=== PATIENT | female | born 1990 | race African-American/Black ===

== ENCOUNTER 2017-11-09 10:29 | Emergency (ER) | payer MEDICAID ==
[~2017-11-09] VITALS: Ht 165.1 cm; Wt 113.4 kg
[2017-11-09] MEDS ORDERED: ONDANSETRON ODT 4 MG TAB PO ONE (11:15)
[2017-11-09 11:45] LABS: Basophils # (auto) 0.1 uL; Eosinophils # (auto) 0.1 uL; Monocytes # (auto) 0.5 uL; Monocytes % (auto) 7.7 % (0.0-12.0); White Blood Cell 7.1 10^3/uL (4.4-10.8)
[2017-11-09 11:47] LABS: Basophils % (auto) 1.2 % (0.0-2.0); Eosinophils % (auto) 1.1 % (0.0-7.0); Hematocrit 36.9 % (36.0-46.0); Lymphocytes # (auto) 1.5 uL; Lymphocytes % (auto) 21.3 % (10.0-50.0); Mean Corpuscular Hemoglobin 23.7 pg (28.0-32.0); Mean Corpuscular Hgb Conc. 32.6 g/dL (32.0-36.0); Mean Corpuscular Volume 72.8 fL (80.0-100.0); Neutrophils # (auto) 4.9 uL; Neutrophils % (auto) 68.7 % (37.0-80.0); Nucleated Red Blood Cells % 0.2 %; Platelet Count (auto) 313 10^3/uL (140-450); Red Blood Cells 5.07 10^6/uL (4.0-5.20); Red Cell Distribution Width 15.8 % (11.8-14.3)
[2017-11-09 12:21] LABS: Albumin 3.1 g/dL (3.4-5.0); BUN/Creatinine Ratio 8.1; Bilirubin, Total 0.3 mg/dL (0.2-1.0); Calcium 8.8 mg/dL (8.5-10.1); Total Protein 8.9 g/dL (6.4-8.2)
[2017-11-09 13:29] VITALS: BP 156/61
== END 2017-11-09 13:36 | disposition home or self-care (01) ==
LOC: ER 10:34
DX: O21.0 Mild hyperemesis gravidarum (principal); Z3A.01 Less than 8 weeks gestation of pregnancy
CPT/HCPCS: 36415; 76801; 80053; 82010; 84702; 85025; 99285; Q0162

== ENCOUNTER → 2018-02-01 | Outpatient (CLI) | payer MEDICAID | END | disposition home or self-care (01) | LOC: LAB 08:38 | PROVIDERS: ATTEND Specialist | DX: O99.810 Abnormal glucose complicating pregnancy (principal); Z3A.19 19 weeks gestation of pregnancy | CPT/HCPCS: 82951; 82952 ==

== ENCOUNTER 2018-04-23 12:05 | Observation (INO) | payer MEDICAID ==
[2018-04-23] MEDS ORDERED: GLYB2.5T8 PO (12:51)
[2018-04-23] MEDS ORDERED: PREN-96 PO (12:52)
== END 2018-04-23 13:40 | disposition home or self-care (01) | DRG 566 ==
LOC: LDRP 12:05
PROVIDERS: ADMIT Specialist; ATTEND Specialist
DX: O24.419 Gestational diabetes mellitus in pregnancy, unspecified control (principal); Z3A.00 Weeks of gestation of pregnancy not specified
CPT/HCPCS: 59025; 76818; 81002; 82948; 82962; G0378

== ENCOUNTER 2018-04-26 11:03 | Observation (INO) | payer MEDICAID ==
[~2018-04-26 11:03] MED LIST: GLYB2.5T8 PO; PREN-96 PO
== END 2018-04-26 12:55 | disposition home or self-care (01) | DRG 566 ==
LOC: LDRP 11:03
PROVIDERS: ADMIT Specialist; ATTEND Specialist
DX: O24.419 Gestational diabetes mellitus in pregnancy, unspecified control (principal); Z3A.31 31 weeks gestation of pregnancy
CPT/HCPCS: 59025; 76818; 81002; 82962; G0378

== ENCOUNTER 2018-04-29 10:22 | Observation (INO) | payer MEDICAID | END 2018-04-29 12:35 | disposition home or self-care (01) | DRG 563 | LOC: LDRP 10:22 | PROVIDERS: ADMIT Obstetrics & Gynecology; ATTEND Obstetrics & Gynecology | DX: O60.00 Preterm labor without delivery, unspecified trimester (principal); Z3A.31 31 weeks gestation of pregnancy | CPT/HCPCS: 59025; 76818; 81002; 82962; G0378 ==

== ENCOUNTER 2018-05-03 11:47 | Observation (INO) | payer MEDICAID | END 2018-05-03 13:25 | disposition home or self-care (01) | DRG 566 | LOC: LDRP 11:47 | PROVIDERS: ADMIT Obstetrics & Gynecology; ATTEND Obstetrics & Gynecology | DX: O24.419 Gestational diabetes mellitus in pregnancy, unspecified control (principal); Z3A.32 32 weeks gestation of pregnancy | CPT/HCPCS: 59025; 76818; 81002; 82948; 82962; G0378 ==

== ENCOUNTER → 2018-05-03 | Outpatient (CLI) | payer MEDICAID ==
[2018-05-03 11:15] LABS: Basophils # (auto) 0.1 uL; Eosinophils # (auto) 0.1 uL; Hemoglobin 10.7 g/dL (12.2-16.2); Monocytes # (auto) 0.6 uL; Monocytes % (auto) 7.4 % (0.0-12.0)
[2018-05-03 11:17] LABS: Basophils % (auto) 0.9 % (0.0-2.0); Eosinophils % (auto) 1.1 % (0.0-7.0); Hematocrit 33.6 % (36.0-46.0); Lymphocytes # (auto) 1.8 uL; Lymphocytes % (auto) 24.3 % (10.0-50.0); Mean Corpuscular Hemoglobin 24.6 pg (28.0-32.0); Mean Corpuscular Hgb Conc. 31.9 g/dL (32.0-36.0); Neutrophils % (auto) 66.3 % (37.0-80.0); Platelet Count (auto) 254 10^3/uL (140-450); Red Blood Cells 4.37 10^6/uL (4.0-5.20); Red Cell Distribution Width 15.2 % (11.8-14.3); White Blood Cell 7.6 10^3/uL (4.4-10.8)
== END | disposition home or self-care (01) ==
LOC: LAB 10:44
PROVIDERS: ATTEND Specialist
DX: Z34.83 Encounter for supervision of other normal pregnancy, third trimester (principal); Z3A.32 32 weeks gestation of pregnancy
CPT/HCPCS: 36415; 85025

== ENCOUNTER 2018-05-06 10:56 | Observation (INO) | payer MEDICAID | END 2018-05-06 12:05 | disposition home or self-care (01) | DRG 566 | LOC: LDRP 10:56 | PROVIDERS: ADMIT Specialist; ATTEND Specialist | DX: O24.419 Gestational diabetes mellitus in pregnancy, unspecified control (principal); Z3A.32 32 weeks gestation of pregnancy | CPT/HCPCS: 59025; 76818; 81002; G0378 ==

== ENCOUNTER 2018-05-10 10:37 | Observation (INO) | payer MEDICAID | END 2018-05-10 11:55 | disposition home or self-care (01) | DRG 566 | LOC: LDRP 10:37 | PROVIDERS: ADMIT Obstetrics & Gynecology; ATTEND Obstetrics & Gynecology | DX: O24.419 Gestational diabetes mellitus in pregnancy, unspecified control (principal); Z3A.33 33 weeks gestation of pregnancy | CPT/HCPCS: 59025; 76818; 81002; 82948; 82962; G0378 ==

== ENCOUNTER 2018-05-13 11:20 | Observation (INO) | payer MEDICAID | END 2018-05-13 13:10 | disposition home or self-care (01) | DRG 566 | LOC: LDRP 11:20 | PROVIDERS: ADMIT Obstetrics & Gynecology; ATTEND Obstetrics & Gynecology | DX: O24.419 Gestational diabetes mellitus in pregnancy, unspecified control (principal); Z3A.33 33 weeks gestation of pregnancy | CPT/HCPCS: 59025; 76818; 81002; 82948; G0378 ==

== ENCOUNTER 2018-05-20 10:07 | Observation (INO) | payer MEDICAID | END 2018-05-20 11:00 | disposition home or self-care (01) | DRG 566 | LOC: LDRP 10:07 | PROVIDERS: ADMIT Obstetrics & Gynecology; ATTEND Obstetrics & Gynecology | DX: O24.419 Gestational diabetes mellitus in pregnancy, unspecified control (principal); Z3A.34 34 weeks gestation of pregnancy | CPT/HCPCS: 59025; 76818; 81002; 82948; 82962; G0378 ==

== ENCOUNTER 2018-05-25 10:25 | Observation (INO) | payer MEDICAID ==
[2018-05-25 11:27] LABS: Basophils # (auto) 0 uL; Eosinophils # (auto) 0.1 uL; Hemoglobin 11.9 g/dL (12.2-16.2); Lymphocytes # (auto) 1.6 uL; Mean Corpuscular Hemoglobin 24.8 pg (28.0-32.0); Mean Corpuscular Hgb Conc. 32.5 g/dL (32.0-36.0); Nucleated Red Blood Cells % 0.1 %; Red Blood Cells 4.79 10^6/uL (4.0-5.20)
[2018-05-25 11:29] LABS: Basophils % (auto) 0.6 % (0.0-2.0); Eosinophils % (auto) 0.9 % (0.0-7.0); Hematocrit 36.6 % (36.0-46.0); Lymphocytes % (auto) 20.5 % (10.0-50.0); Mean Corpuscular Volume 76.2 fL (80.0-100.0); Monocytes # (auto) 0.6 uL; Monocytes % (auto) 7.5 % (0.0-12.0); Neutrophils # (auto) 5.5 uL; Neutrophils % (auto) 70.5 % (37.0-80.0); Platelet Count (auto) 241 10^3/uL (140-450); Red Cell Distribution Width 16.1 % (11.8-14.3); White Blood Cell 7.8 10^3/uL (4.4-10.8)
[2018-05-26 06:11] LABS: RPR Non Reactive (Non Reactive)
== END 2018-05-25 12:38 | disposition home or self-care (01) | DRG 566 ==
LOC: LAB 10:25 → LDRP 11:15
PROVIDERS: ADMIT Obstetrics & Gynecology; ATTEND Obstetrics & Gynecology
DX: O24.419 Gestational diabetes mellitus in pregnancy, unspecified control (principal); Z3A.35 35 weeks gestation of pregnancy
CPT/HCPCS: 36415; 59025; 76818; 81002; 82948; 82962; 85025; 86592; 87081; G0378

== ENCOUNTER 2018-05-27 11:55 | Observation (INO) | payer MEDICAID | END 2018-05-27 13:10 | disposition home or self-care (01) | DRG 566 | LOC: LDRP 11:55 | PROVIDERS: ADMIT Specialist; ATTEND Specialist | DX: O24.419 Gestational diabetes mellitus in pregnancy, unspecified control (principal); Z3A.35 35 weeks gestation of pregnancy | CPT/HCPCS: 59025; 81002; 82948; 82962; G0378 ==

== ENCOUNTER 2018-05-31 10:46 | Observation (INO) | payer MEDICAID | END 2018-05-31 12:25 | disposition home or self-care (01) | DRG 566 | LOC: LDRP 10:46 | PROVIDERS: ADMIT Specialist; ATTEND Specialist | DX: O24.419 Gestational diabetes mellitus in pregnancy, unspecified control (principal); Z3A.36 36 weeks gestation of pregnancy | CPT/HCPCS: 59025; 76818; 81002; 82948; G0378 ==

== ENCOUNTER 2018-06-03 10:12 | Observation (INO) | payer MEDICAID | END 2018-06-03 11:25 | disposition home or self-care (01) | DRG 566 | LOC: LDRP 10:12 | PROVIDERS: ADMIT Specialist; ATTEND Specialist | DX: O24.419 Gestational diabetes mellitus in pregnancy, unspecified control (principal); Z3A.36 36 weeks gestation of pregnancy | CPT/HCPCS: 59025; 76818; 81002; 82962; G0378 ==

== ENCOUNTER 2018-06-10 09:59 | Observation (INO) | payer MEDICAID | END 2018-06-10 11:30 | disposition home or self-care (01) | DRG 566 | LOC: LDRP 09:59 | PROVIDERS: ADMIT Obstetrics & Gynecology; ATTEND Obstetrics & Gynecology | DX: O24.419 Gestational diabetes mellitus in pregnancy, unspecified control (principal); Z3A.00 Weeks of gestation of pregnancy not specified | CPT/HCPCS: 59025; 76818; 81002; 82948; 82962; G0378 ==

== ENCOUNTER 2018-06-15 11:38 | Observation (INO) | payer MEDICAID | END 2018-06-15 13:35 | disposition home or self-care (01) | DRG 566 | LOC: LDRP 11:38 | PROVIDERS: ADMIT Obstetrics & Gynecology; ATTEND Obstetrics & Gynecology | DX: O24.419 Gestational diabetes mellitus in pregnancy, unspecified control (principal); Z3A.38 38 weeks gestation of pregnancy | CPT/HCPCS: 59025; 76818; 81002; 82962; G0378 ==

== ENCOUNTER 2018-06-17 09:44 | Observation (INO) | payer MEDICAID | END 2018-06-17 11:00 | disposition home or self-care (01) | DRG 566 | LOC: LDRP 09:44 | PROVIDERS: ADMIT Obstetrics & Gynecology; ATTEND Obstetrics & Gynecology | DX: O24.419 Gestational diabetes mellitus in pregnancy, unspecified control (principal); Z3A.38 38 weeks gestation of pregnancy | CPT/HCPCS: 59025; 76818; 81002; 82948; 82962; G0378 ==

== ENCOUNTER 2021-06-06 11:37 | Emergency (ER) | payer MEDICAID ==
[~2021-06-06] VITALS: Ht 170.2 cm; Wt 127.0 kg
[~2021-06-06 11:37] MED LIST changes: -GLYB2.5T8 PO
[2021-06-06 12:45] VITALS: BP 143/76
[2021-06-06] MEDS ORDERED: IBUP800T27 PO (13:02)
[2021-06-06] MEDS ORDERED: LACT10SO59 PO (13:02)
== END 2021-06-06 13:16 | disposition home or self-care (01) ==
LOC: ER 11:41
DX: K59.00 Constipation, unspecified (principal); Z79.1 Long term (current) use of non-steroidal anti-inflammatories (NSAID); Z79.899 Other long term (current) drug therapy
CPT/HCPCS: 74018

== ENCOUNTER 2021-06-19 09:58 | Emergency (ER) | payer MEDICAID ==
[~2021-06-19] VITALS: Ht 170.2 cm; Wt 127.0 kg
[~2021-06-19 09:58] MED LIST changes: +IBUP800T27 PO; +LACT10SO59 PO
[2021-06-19 10:34] VITALS: BP 145/99
[2021-06-19 12:29] LABS: Urine Bacteria FEW /hpf (None Seen); Urine Blood 3+ /uL (Negative); Urine Mucus FEW (None Seen); Urine Specific Gravity 1.024 (1.001-1.035); Urine WBC 8 /hpf (0 - 5)
[2021-06-19] MEDS ORDERED: BACL10TA PO (12:53)
== END 2021-06-19 12:57 | disposition home or self-care (01) ==
LOC: ER 09:58
DX: S39.012A Strain of muscle, fascia and tendon of lower back, initial encounter (principal); E11.9 Type 2 diabetes mellitus without complications; X58.XXXA Exposure to other specified factors, initial encounter; Y93.89 Activity, other specified; Y92.89 Other specified places as the place of occurrence of the external cause; Y99.8 Other external cause status
CPT/HCPCS: 74176; 81001; 81025

== ENCOUNTER 2021-09-17 15:44 | Emergency (ER) | payer MEDICAID ==
[~2021-09-17] VITALS: Ht 170.2 cm; Wt 90.7 kg
[2021-09-17 15:44] VITALS: BP 153/95
[~2021-09-17 15:44] MED LIST changes: +BACL10TA PO
[2021-09-17] MEDS ORDERED: methylPREDNISolone SOD SUCC 125 MG/2 ML VL IM ONE (16:30)
[2021-09-17] MEDS ORDERED: ALBUAER3 IN (16:40)
== END 2021-09-17 16:58 | disposition home or self-care (01) ==
LOC: ER 15:44
DX: J98.01 Acute bronchospasm (principal); E11.9 Type 2 diabetes mellitus without complications
CPT/HCPCS: 71046; 93005; 96372; 99283; J2930

== ENCOUNTER 2021-09-22 14:01 | Emergency (ER) | payer MEDICAID ==
[~2021-09-22] VITALS: Ht 170.2 cm; Wt 127.0 kg
[~2021-09-22 14:01] MED LIST changes: +ALBUAER3 IN
[2021-09-22 19:17] LABS: Basophils # (auto) 0.1 10 ^3/uL (0-0.2); Basophils % (auto) 0.9 % (0.0-2.0); Eosinophils # (auto) 0.3 10 ^3/uL (0-0.8); Eosinophils % (auto) 2.5 % (0.0-7.0); Hematocrit 35.7 % (36.0-46.0); Hemoglobin 11.5 g/dL (12.2-16.2); Lymphocytes % (auto) 28.3 % (10.0-50.0); Mean Corpuscular Hemoglobin 24.3 pg (28.0-32.0); Mean Corpuscular Hgb Conc. 32.3 g/dL (32.0-36.0); Monocytes # (auto) 0.8 10 ^3/uL (0-1.3); Monocytes % (auto) 7.1 % (0.0-12.0); Neutrophils # (auto) 6.5 10 ^3/uL (1.6-8.6); Neutrophils % (auto) 61.2 % (37.0-80.0); Nucleated Red Blood Cells % 0.1 %; Red Blood Cells 4.75 10^6/uL (4.0-5.20); White Blood Cell 10.6 10^3/uL (4.4-10.8)
[2021-09-22 19:29] LABS: Albumin 3.2 g/dL (3.4-5.0); Calcium 8.8 mg/dL (8.5-10.1); Potassium 3.7 mmol/L (3.5-5.1)
[2021-09-22 19:32] LABS: BUN/Creatinine Ratio 9.8; Bilirubin, Total 0.3 mg/dL (0.2-1.0)
[2021-09-22 21:00] VITALS: BP 131/79
== END 2021-09-22 21:04 | disposition home or self-care (01) ==
LOC: ER 14:01
DX: R07.89 Other chest pain (principal); E11.9 Type 2 diabetes mellitus without complications; Z79.1 Long term (current) use of non-steroidal anti-inflammatories (NSAID); Z79.899 Other long term (current) drug therapy
CPT/HCPCS: 36415; 71046; 80053; 84484; 85025; 93005

== ENCOUNTER 2022-01-23 10:34 | Emergency (ER) | payer MEDICAID ==
[~2022-01-23] VITALS: Ht 170.2 cm; Wt 122.2 kg
[2022-01-23 11:48] LABS: Basophils # (auto) 0 10 ^3/uL (0-0.2); Basophils % (auto) 0.4 % (0.0-2.0); Eosinophils # (auto) 0.2 10 ^3/uL (0-0.8); Hemoglobin 10.9 g/dL (12.2-16.2); Lymphocytes # (auto) 1.7 10 ^3/uL (0.4-5.4); Mean Corpuscular Hemoglobin 23.4 pg (28.0-32.0); Monocytes # (auto) 0.4 10 ^3/uL (0-1.3); Nucleated Red Blood Cells % 0.1 %; Red Blood Cells 4.67 10^6/uL (4.0-5.20)
[2022-01-23 11:51] LABS: Eosinophils % (auto) 3.2 % (0.0-7.0); Hematocrit 34.3 % (36.0-46.0); Lymphocytes % (auto) 29.2 % (10.0-50.0); Mean Corpuscular Hgb Conc. 31.9 g/dL (32.0-36.0); Mean Corpuscular Volume 73.4 fL (80.0-100.0); Monocytes % (auto) 6.5 % (0.0-12.0); Neutrophils # (auto) 3.5 10 ^3/uL (1.6-8.6); Neutrophils % (auto) 60.7 % (37.0-80.0); Red Cell Distribution Width 16.5 % (11.8-14.3); White Blood Cell 5.8 10^3/uL (4.4-10.8)
[2022-01-23 12:09] LABS: Albumin 3.4 g/dL (3.4-5.0); BUN/Creatinine Ratio 6.5; Calcium 8.8 mg/dL (8.5-10.1)
[2022-01-23 12:11] LABS: Bilirubin, Total 0.2 mg/dL (0.2-1.0); Total Protein 8.4 g/dL (6.4-8.2)
[2022-01-23 12:34] VITALS: BP 141/88
[2022-01-23] MEDS ORDERED: PANT40TA2 PO (13:04)
== END 2022-01-23 13:11 | disposition home or self-care (01) ==
LOC: ER 10:43
DX: K21.9 Gastro-esophageal reflux disease without esophagitis (principal); K76.0 Fatty (change of) liver, not elsewhere classified; E11.9 Type 2 diabetes mellitus without complications; Z79.1 Long term (current) use of non-steroidal anti-inflammatories (NSAID); Z79.899 Other long term (current) drug therapy
CPT/HCPCS: 36415; 76705; 80053; 84484; 84702; 85025; 93005

== ENCOUNTER 2022-02-28 16:41 | Emergency (ER) | payer MEDICAID ==
[~2022-02-28] VITALS: Ht 172.7 cm; Wt 129.9 kg
[~2022-02-28 16:41] MED LIST changes: +PANT40TA2 PO
[2022-02-28 20:02] LABS: Basophils # (auto) 0.1 10 ^3/uL (0-0.2); Eosinophils # (auto) 0.2 10 ^3/uL (0-0.8); Hemoglobin 11.1 g/dL (12.2-16.2); Nucleated Red Blood Cells % 0.1 %
[2022-02-28 20:03] LABS: Basophils % (auto) 0.9 % (0.0-2.0); Eosinophils % (auto) 2.9 % (0.0-7.0); Hematocrit 35.2 % (36.0-46.0); Lymphocytes # (auto) 3.2 10 ^3/uL (0.4-5.4); Lymphocytes % (auto) 41.7 % (10.0-50.0); Mean Corpuscular Hemoglobin 22.9 pg (28.0-32.0); Mean Corpuscular Hgb Conc. 31.6 g/dL (32.0-36.0); Mean Corpuscular Volume 72.5 fL (80.0-100.0); Monocytes # (auto) 0.6 10 ^3/uL (0-1.3); Monocytes % (auto) 8.3 % (0.0-12.0); Neutrophils # (auto) 3.6 10 ^3/uL (1.6-8.6); Neutrophils % (auto) 46.2 % (37.0-80.0); Red Blood Cells 4.86 10^6/uL (4.0-5.20); Red Cell Distribution Width 16.5 % (11.8-14.3); White Blood Cell 7.7 10^3/uL (4.4-10.8)
[2022-02-28 20:05] LABS: Urine Bacteria FEW /hpf (None Seen); Urine Blood Negative /uL (Negative); Urine Mucus FEW (None Seen); Urine Specific Gravity 1.039 (1.001-1.035); Urine WBC 5 /hpf (0 - 5)
[2022-02-28 20:14] LABS: Albumin 3.5 g/dL (3.4-5.0); Calcium 8.6 mg/dL (8.5-10.1); Potassium 3.6 mmol/L (3.5-5.1)
[2022-02-28 20:22] LABS: BUN/Creatinine Ratio 8.3; Bilirubin, Total 0.3 mg/dL (0.2-1.0); Total Protein 8.2 g/dL (6.4-8.2)
[2022-02-28 22:23] VITALS: BP 114/72
== END 2022-02-28 22:29 | disposition home or self-care (01) ==
LOC: ER 16:41
DX: R10.9 Unspecified abdominal pain (principal); E11.9 Type 2 diabetes mellitus without complications
CPT/HCPCS: 36415; 80053; 81001; 84702; 85025

== ENCOUNTER 2022-03-11 09:26 | Emergency (ER) | payer MEDICAID ==
[~2022-03-11] VITALS: Ht 172.7 cm; Wt 127.2 kg
[2022-03-11 09:46] VITALS: BP 125/72
[2022-03-11 10:32] LABS: Basophils # (auto) 0.1 10 ^3/uL (0-0.2); Basophils % (auto) 1.3 % (0.0-2.0); Eosinophils # (auto) 0.1 10 ^3/uL (0-0.8); Eosinophils % (auto) 2.2 % (0.0-7.0); Hematocrit 34.6 % (36.0-46.0); Lymphocytes # (auto) 2.2 10 ^3/uL (0.4-5.4); Lymphocytes % (auto) 37.5 % (10.0-50.0); Mean Corpuscular Hemoglobin 23.5 pg (28.0-32.0); Mean Corpuscular Hgb Conc. 31.7 g/dL (32.0-36.0); Mean Corpuscular Volume 73.9 fL (80.0-100.0); Monocytes # (auto) 0.5 10 ^3/uL (0-1.3); Monocytes % (auto) 8.3 % (0.0-12.0); Neutrophils # (auto) 2.9 10 ^3/uL (1.6-8.6); Neutrophils % (auto) 50.7 % (37.0-80.0); Nucleated Red Blood Cells % 0.1 %; Red Blood Cells 4.69 10^6/uL (4.0-5.20); White Blood Cell 5.8 10^3/uL (4.4-10.8)
[2022-03-11 10:54] LABS: Urine Bacteria NONE SEEN /hpf (None Seen); Urine Blood Negative /uL (Negative); Urine Mucus FEW (None Seen); Urine Specific Gravity 1.019 (1.001-1.035); Urine WBC 1 /hpf (0 - 5)
[2022-03-11 11:06] LABS: Alanine Aminotransferase 13 U/L (13-56); Alkaline Phosphatase 69 U/L (45-117); Anion Gap 7 (5-15); Aspartate Aminotransferase 8 U/L (15-37); BUN/Creatinine Ratio 4.8; Bilirubin, Total 0.3 mg/dL (0.2-1.0); Blood Urea Nitrogen 5 mg/dL (7-18); Calcium 8.3 mg/dL (8.5-10.1); Carbon Dioxide 24 mmol/L (21-32); Chloride 109 mmol/L (98-107); GFR African American 78 mL/min; GFR Non-African American 65 mL/min; Glucose 101 mg/dL (74-106); Potassium 3.8 mmol/L (3.5-5.1); Sodium 140 mmol/L (136-145)
[2022-03-11 11:07] LABS: Albumin 3.2 g/dL (3.4-5.0); Total Protein 7.9 g/dL (6.4-8.2)
== END 2022-03-11 13:22 | disposition home or self-care (01) ==
LOC: ER 09:26
DX: R10.30 Lower abdominal pain, unspecified (principal); E11.9 Type 2 diabetes mellitus without complications; Z32.02 Encounter for pregnancy test, result negative
CPT/HCPCS: 36415; 74176; 80053; 81001; 81025; 85025

== ENCOUNTER 2022-04-06 09:37 | Emergency (ER) | payer MEDICAID ==
[~2022-04-06] VITALS: Ht 172.7 cm; Wt 122.7 kg
[2022-04-06 09:37] VITALS: BP 149/94
[2022-04-06 10:56] LABS: Urine Bacteria FEW /hpf (None Seen); Urine Blood TRACE /uL (Negative); Urine Specific Gravity 1.003 (1.001-1.035); Urine WBC 1 /hpf (0 - 5)
[2022-04-06 11:12] LABS: Albumin 3.4 g/dL (3.4-5.0); BUN/Creatinine Ratio 9.4; Bilirubin, Total 0.3 mg/dL (0.2-1.0); Potassium 3.9 mmol/L (3.5-5.1); Total Protein 7.8 g/dL (6.4-8.2)
[2022-04-06 11:47] LABS: Eosinophils # (auto) 0.2 10 ^3/uL (0-0.8); Hemoglobin 11.6 g/dL (12.2-16.2); Monocytes # (auto) 0.4 10 ^3/uL (0-1.3)
[2022-04-06 11:49] LABS: Basophils # (auto) 0.1 10 ^3/uL (0-0.2); Basophils % (auto) 0.8 % (0.0-2.0); Hematocrit 36.2 % (36.0-46.0); Lymphocytes # (auto) 2.1 10 ^3/uL (0.4-5.4); Lymphocytes % (auto) 32.9 % (10.0-50.0); Mean Corpuscular Hemoglobin 23.6 pg (28.0-32.0); Mean Corpuscular Volume 73.7 fL (80.0-100.0); Monocytes % (auto) 6.8 % (0.0-12.0); Neutrophils # (auto) 3.6 10 ^3/uL (1.6-8.6); Neutrophils % (auto) 56.5 % (37.0-80.0); Nucleated Red Blood Cells % 0.1 %; Red Cell Distribution Width 16.9 % (11.8-14.3); White Blood Cell 6.4 10^3/uL (4.4-10.8)
[2022-04-06] MEDS ORDERED: FAMOTIDINE 20 MG TAB PO ONE (12:45)
[2022-04-06] MEDS ORDERED: LIDOCAINE VISCOUS 2% 15ML UD PO ONE (12:45)
[2022-04-06] MEDS ORDERED: ALUM & MAG HYDROX-SIMETH LIQ(MAALOX) 30 ML PO ONE (12:45)
[2022-04-06] MEDS ORDERED: ONDANSETRON ODT 4 MG TAB PO ONE (12:45)
== END 2022-04-06 15:14 | disposition home or self-care (01) ==
LOC: ER 09:37
DX: K21.9 Gastro-esophageal reflux disease without esophagitis (principal); E11.9 Type 2 diabetes mellitus without complications; Z79.899 Other long term (current) drug therapy; Z79.1 Long term (current) use of non-steroidal anti-inflammatories (NSAID)
CPT/HCPCS: 36415; 71045; 80053; 81001; 81025; 84484; 85025; 93005; 99285; Q0162

== ENCOUNTER 2023-03-28 04:41 | Emergency (ER) | payer MEDICAID ==
[~2023-03-28] VITALS: Ht 170.2 cm; Wt 125.0 kg
[~2023-03-28 04:41] MED LIST changes: +IBUP-1456 PO; -IBUP800T27 PO
[2023-03-28 07:24] VITALS: BP 134/82; PULSE 91; RESP 16; TEMP 98.4; O2SAT 97
[2023-03-28 08:21] LABS: Urine Bacteria FEW /hpf (None Seen); Urine Blood Negative /uL (Negative); Urine Clarity Clear (Clear); Urine Color Yellow (Yellow); Urine Protein, UAD TRACE (Negative); Urine Specific Gravity 1.023 (1.001-1.035); Urine Urobilinogen Normal (Negative); Urine WBC 4 /hpf (0 - 5)
[2023-03-28] MEDS ORDERED: FLUC150T38 PO (09:17)
== END 2023-03-28 09:18 | disposition home or self-care (01) ==
LOC: ER 04:41
DX: B37.31 Acute candidiasis of vulva and vagina (principal); N76.0 Acute vaginitis; E11.9 Type 2 diabetes mellitus without complications; K21.9 Gastro-esophageal reflux disease without esophagitis; Z32.02 Encounter for pregnancy test, result negative
CPT/HCPCS: 81001; 81025

== ENCOUNTER 2023-05-18 17:05 | Emergency (ER) | payer MEDICAID ==
[~2023-05-18] VITALS: Ht 170.2 cm; Wt 122.2 kg
[~2023-05-18 17:05] MED LIST changes: +FLUC150T38 PO
[2023-05-18 18:17] VITALS: BP 141/82; PULSE 80; RESP 16; TEMP 98.6
[2023-05-18 19:42] LABS: Urine Bacteria NONE SEEN /hpf (None Seen); Urine Blood Negative /uL (Negative); Urine Clarity Clear (Clear); Urine Color Yellow (Yellow); Urine Protein, UAD Negative (Negative); Urine Urobilinogen Normal (Negative); Urine WBC 1 /hpf (0 - 5); Urine pH 6.5 (5.0-8.0)
[2023-05-18 20:49] VITALS: O2SAT 100
[2023-05-18] MEDS ORDERED: MET500T PO (21:22)
== END 2023-05-18 21:34 | disposition home or self-care (01) ==
LOC: ER 17:05
DX: N76.0 Acute vaginitis (principal); B96.89 Other specified bacterial agents as the cause of diseases classified elsewhere; E11.9 Type 2 diabetes mellitus without complications; K21.9 Gastro-esophageal reflux disease without esophagitis; Z79.899 Other long term (current) drug therapy
CPT/HCPCS: 81001

== ENCOUNTER 2023-06-07 14:06 | Emergency (ER) | payer MEDICAID ==
[~2023-06-07] VITALS: Ht 170.2 cm; Wt 120.8 kg
[~2023-06-07 14:06] MED LIST changes: +MET500T PO
[2023-06-07 15:04] LABS: Urine Bacteria NONE SEEN /hpf (None Seen); Urine Blood Negative /uL (Negative); Urine Clarity Clear (Clear); Urine Color Yellow (Yellow); Urine Mucus FEW (None Seen); Urine Protein, UAD Negative (Negative); Urine Specific Gravity 1.021 (1.001-1.035); Urine Urobilinogen Normal (Negative); Urine WBC 4 /hpf (0 - 5); Urine pH 5.5 (5.0-8.0)
[2023-06-07] MEDS ORDERED: METR1GEL TOP (16:12)
[2023-06-07] MEDS ORDERED: FLUC150T38 PO (16:12)
[2023-06-07] MEDS ORDERED: METR375C PO (16:33)
[2023-06-07 16:46] VITALS: BP 120/80; PULSE 88; RESP 17; TEMP 98.4; O2SAT 97
== END 2023-06-07 16:48 | disposition home or self-care (01) ==
LOC: ER 14:06
DX: B37.31 Acute candidiasis of vulva and vagina (principal); E11.9 Type 2 diabetes mellitus without complications; K21.9 Gastro-esophageal reflux disease without esophagitis; Z79.899 Other long term (current) drug therapy
CPT/HCPCS: 81001

== ENCOUNTER 2023-10-25 08:43 | Emergency (ER) | payer MEDICAID ==
[~2023-10-25] VITALS: Ht 170.2 cm; Wt 107.8 kg
[~2023-10-25 08:43] MED LIST changes: +METR-344 PO; +METR375C PO
[2023-10-25] MEDS: MAALOX PLUS or MAALOX 30 ML PO ONE (09:28)
[2023-10-25] MEDS: DONNATAL 5ml ORAL Elix (BELLADONNA ALK-PHENOBARB) PO ONE (09:28)
[2023-10-25] MEDS: LIDOCAINE VISCOUS 2% 15ML UD PO ONE (09:28)
[2023-10-25 09:51] LABS: Basophils # (auto) 0.1 10 ^3/uL (0-0.2); Eosinophils # (auto) 0.2 10 ^3/uL (0-0.8); Eosinophils % (auto) 4.9 % (0.0-7.0); Hemoglobin 11.4 g/dL (12.2-16.2); Monocytes # (auto) 0.4 10 ^3/uL (0-1.3); Neutrophils # (auto) 2.3 10 ^3/uL (1.6-8.6)
[2023-10-25 09:53] LABS: Basophils % (auto) 1.4 % (0.0-2.0); Hematocrit 35.6 % (36.0-46.0); Lymphocytes % (auto) 39.3 % (10.0-50.0); Mean Corpuscular Hemoglobin 25.2 pg (28.0-32.0); Mean Corpuscular Hgb Conc. 32.1 g/dL (32.0-36.0); Mean Corpuscular Volume 78.4 fL (80.0-100.0); Neutrophils % (auto) 46.4 % (37.0-80.0); Nucleated Red Blood Cells % 0.1 %; Red Blood Cells 4.54 10^6/uL (4.0-5.20); Red Cell Distribution Width 15.4 % (11.8-14.3)
[2023-10-25 10:08] LABS: Chloride 107 mmol/L (98-107); Sodium 139 mmol/L (136-145)
[2023-10-25 10:09] LABS: Anion Gap 4 (5-15); Carbon Dioxide 28 mmol/L (20-30)
[2023-10-25 10:10] LABS: Calcium 9.4 mg/dL (8.5-10.1)
[2023-10-25 10:14] LABS: BUN/Creatinine Ratio 7.6 (10.0-20.0); Blood Urea Nitrogen 8 mg/dL (9-23); Glucose 86 mg/dL (74-106)
[2023-10-25 10:32] LABS: Urine Bacteria FEW /hpf (None Seen); Urine Blood Negative /uL (Negative); Urine Clarity Clear (Clear); Urine Color Light-Yellow (Yellow); Urine Protein, UAD Negative (Negative); Urine Specific Gravity 1.013 (1.001-1.035); Urine Urobilinogen Normal (Negative); Urine WBC 1 /hpf (0 - 5); Urine pH 6.5 (5.0-9.0)
[2023-10-25 10:56] VITALS: BP 124/78; PULSE 87; RESP 18; TEMP 97.9; O2SAT 100
== END 2023-10-25 11:17 | disposition home or self-care (01) ==
LOC: ER 08:43
DX: K29.70 Gastritis, unspecified, without bleeding (principal); E11.9 Type 2 diabetes mellitus without complications; K21.9 Gastro-esophageal reflux disease without esophagitis
CPT/HCPCS: 36415; 80048; 81001; 85025; 85379

== ENCOUNTER 2023-12-21 16:13 | Emergency (ER) | payer MEDICAID ==
[~2023-12-21] VITALS: Ht 170.2 cm; Wt 105.0 kg
[2023-12-21 16:51] VITALS: PULSE 82; PULSE 87; RESP 16; O2SAT 97
[2023-12-21 17:20] LABS: Urine Bacteria None Seen /hpf (None Seen)
[2023-12-21 17:47] LABS: Urine Blood Negative /uL (Negative); Urine Clarity Clear (Clear); Urine Color Light-Yellow (Yellow); Urine Protein, UAD Negative (Negative); Urine Specific Gravity 1.019 (1.001-1.035); Urine Urobilinogen Normal (Negative); Urine WBC 2 /hpf (0 - 5); Urine pH 5.5 (5.0-9.0)
[2023-12-21] MEDS ORDERED: FLUC150T38 PO (18:03)
[2023-12-21] MEDS ORDERED: METR-344 PO (18:03)
[2023-12-21 18:15] VITALS: BP 121/71; PULSE 85; RESP 18; TEMP 98.7; O2SAT 100
[2023-12-22 14:06] LABS: Chlamydia Trachomatis, NAA Negative (Negative); Neisseria gonorrhoeae, NAA Negative (Negative)
== END 2023-12-21 18:19 | disposition home or self-care (01) ==
LOC: ER 16:13
DX: B37.31 Acute candidiasis of vulva and vagina (principal); N76.0 Acute vaginitis; N94.10 Unspecified dyspareunia; E11.9 Type 2 diabetes mellitus without complications; K21.9 Gastro-esophageal reflux disease without esophagitis
CPT/HCPCS: 81001

== ENCOUNTER 2024-01-22 15:42 | Emergency (ER) | payer MEDICAID ==
[~2024-01-22] VITALS: Ht 170.2 cm; Wt 103.0 kg
[2024-01-22 16:30] VITALS: BP 121/77; PULSE 82; RESP 18; TEMP 98.9; O2SAT 99
[2024-01-22] MEDS ORDERED: PROM1SOL4 PO (17:04)
== END 2024-01-22 17:18 | disposition home or self-care (01) ==
LOC: ER 15:42
DX: J20.9 Acute bronchitis, unspecified (principal); E11.9 Type 2 diabetes mellitus without complications; K21.9 Gastro-esophageal reflux disease without esophagitis
CPT/HCPCS: 71045

== ENCOUNTER 2024-01-26 13:49 | Emergency (ER) | payer MEDICAID ==
[~2024-01-26] VITALS: Ht 170.2 cm; Wt 100.5 kg
[~2024-01-26 13:49] MED LIST changes: +PROM1SOL4 PO
[2024-01-26 15:10] LABS: Urine Bacteria FEW /hpf (None Seen); Urine Blood Negative /uL (Negative); Urine Clarity Clear (Clear); Urine Color Light-Yellow (Yellow); Urine Protein, UAD Negative (Negative); Urine Specific Gravity 1.011 (1.001-1.035); Urine Urobilinogen Normal (Negative); Urine WBC 2 /hpf (0 - 5); Urine pH 6.5 (5.0-9.0)
[2024-01-26] MEDS ORDERED: NITR-87 PO (16:17)
[2024-01-26] MEDS ORDERED: PANT40TA2 PO (16:18)
[2024-01-26 17:38] VITALS: BP 118/70; PULSE 78; RESP 16; TEMP 98.7; O2SAT 98
== END 2024-01-26 17:43 | disposition home or self-care (01) ==
LOC: ER 13:49
DX: K29.00 Acute gastritis without bleeding (principal); N39.0 Urinary tract infection, site not specified; K21.9 Gastro-esophageal reflux disease without esophagitis
CPT/HCPCS: 81001; 93005

== ENCOUNTER 2024-01-29 18:12 | Emergency (ER) | payer MEDICAID ==
[~2024-01-29] VITALS: Ht 170.2 cm; Wt 98.8 kg
[~2024-01-29 18:12] MED LIST changes: +NITR-87 PO
[2024-01-29 20:02] VITALS: BP 121/80; PULSE 66; RESP 16; TEMP 98.5; O2SAT 100
[2024-01-29] MEDS: HYDROcodone-ACET 10/325MG TAB PO ONE (20:31)
[2024-01-29] MEDS ORDERED: IBU600T PO (20:36)
== END 2024-01-29 20:45 | disposition home or self-care (01) ==
LOC: ER 18:12
DX: F43.9 Reaction to severe stress, unspecified (principal); R51.9 Headache, unspecified; K21.9 Gastro-esophageal reflux disease without esophagitis; R42 Dizziness and giddiness
CPT/HCPCS: 82962; 93005

== ENCOUNTER 2024-03-02 07:04 | Emergency (ER) | payer MEDICAID ==
[~2024-03-02] VITALS: Ht 172.7 cm; Wt 96.7 kg
[~2024-03-02 07:04] MED LIST changes: +IBU600T PO
[2024-03-02 07:59] LABS: Basophils # (auto) 0 10 ^3/uL (0-0.2); Eosinophils # (auto) 0.1 10 ^3/uL (0-0.8); Eosinophils % (auto) 3.2 % (0.0-7.0); Hematocrit 35.2 % (36.0-46.0); Hemoglobin 11.7 g/dL (12.2-16.2); Lymphocytes # (auto) 1.4 10 ^3/uL (0.4-5.4); Lymphocytes % (auto) 30.4 % (10.0-50.0); Mean Corpuscular Hemoglobin 26.2 pg (28.0-32.0); Mean Corpuscular Hgb Conc. 33.2 g/dL (32.0-36.0); Mean Corpuscular Volume 79.1 fL (80.0-100.0); Monocytes # (auto) 0.3 10 ^3/uL (0-1.3); Monocytes % (auto) 7.6 % (0.0-12.0); Neutrophils # (auto) 2.6 10 ^3/uL (1.6-8.6); Neutrophils % (auto) 57.8 % (37.0-80.0); Platelet Count (auto) 256 10^3/uL (140-450); Red Blood Cells 4.45 10^6/uL (4.0-5.20); Red Cell Distribution Width 17.2 % (11.8-14.3); White Blood Cell 4.5 10^3/uL (4.4-10.8)
[2024-03-02 08:09] LABS: Alanine Aminotransferase 10 U/L (7-40); Alkaline Phosphatase 54 U/L (46-116); Anion Gap 6 (5-15); Aspartate Aminotransferase 12 U/L (13-40); BUN/Creatinine Ratio 5.9 (10.0-20.0); Blood Urea Nitrogen 6 mg/dL (9-23); Calcium 9.4 mg/dL (8.7-10.4); Carbon Dioxide 26 mmol/L (20-31); Chloride 108 mmol/L (98-107); Glucose 95 mg/dL (74-106); Potassium 3.9 mmol/L (3.5-5.1); Sodium 140 mmol/L (136-145)
[2024-03-02 08:10] LABS: Bilirubin, Total 0.3 mg/dL (0.2-1.0); Total Protein 7.7 g/dL (5.7-8.2)
[2024-03-02 08:11] LABS: Urine Bacteria None Seen /hpf (None Seen); Urine WBC None Seen /hpf (0 - 5)
[2024-03-02 08:22] LABS: Urine Blood Negative /uL (Negative); Urine Clarity Clear (Clear); Urine Color Colorless (Yellow); Urine Protein, UAD Negative (Negative); Urine Specific Gravity 1.002 (1.001-1.035); Urine Urobilinogen Normal (Negative); Urine pH 6.5 (5.0-9.0)
[2024-03-02 10:23] LABS: Lipase 43 U/L (12-53)
[2024-03-02] MEDS ORDERED: POLY17PO5 PO (13:27)
[2024-03-02 13:55] VITALS: PULSE 80; RESP 20; O2SAT 96
[2024-03-02] MEDS: ONDANSETRON ODT 4 MG TAB PO ONE (14:05)
[2024-03-02] MEDS: ACETAMINOPHEN 325 MG TAB PO ONE (14:05)
[2024-03-02] MEDS: FAMOTIDINE 20 MG TAB PO ONE (14:05)
[2024-03-02 14:09] VITALS: BP 122/69; PULSE 66; RESP 16; TEMP 97.5; O2SAT 98
== END 2024-03-02 14:17 | disposition home or self-care (01) ==
LOC: ER 07:04
DX: K59.00 Constipation, unspecified (principal); K21.9 Gastro-esophageal reflux disease without esophagitis; E11.9 Type 2 diabetes mellitus without complications; Z79.899 Other long term (current) drug therapy; Z87.440 Personal history of urinary (tract) infections; Z32.02 Encounter for pregnancy test, result negative
CPT/HCPCS: 36415; 74176; 80053; 81001; 81025; 83690; 85025; 99284; Q0162

== ENCOUNTER 2024-03-18 21:38 | Emergency (ER) | payer MEDICAID ==
[~2024-03-18] VITALS: Ht 170.2 cm; Wt 96.5 kg
[~2024-03-18 21:38] MED LIST changes: +POLY17PO5 PO
[2024-03-18 22:42] LABS: Urine Bacteria FEW /hpf (None Seen); Urine Blood Negative /uL (Negative); Urine Clarity Clear (Clear); Urine Color Colorless (Yellow); Urine Protein, UAD Negative (Negative); Urine Specific Gravity 1.003 (1.001-1.035); Urine Urobilinogen Normal (Negative); Urine WBC <1 /hpf (0 - 5); Urine pH 5.5 (5.0-9.0)
[2024-03-19] MEDS ORDERED: DOXY-286 PO (00:34)
[2024-03-19] MEDS ORDERED: cefTRIAXone W LIDOCAINE 1 GM IM IM ONE (00:45)
[2024-03-19] MEDS: cefTRIAXone SOD 1,000 MG VL IM ONE (00:59)
[2024-03-19] MEDS: DOXYCYCLINE 100 MG TAB/CAP PO ONE (00:59)
[2024-03-19] MEDS: FLUCONAZOLE 100 MG TAB PO ONE (00:59)
[2024-03-19 01:06] VITALS: BP 126/76; PULSE 89; RESP 17; TEMP 98.6; O2SAT 100
[2024-03-21 11:07] LABS: Chlamydia Trachomatis, NAA Negative (Negative); Neisseria gonorrhoeae, NAA Negative (Negative)
== END 2024-03-19 01:07 | disposition home or self-care (01) ==
LOC: ER 21:38
DX: N89.8 Other specified noninflammatory disorders of vagina (principal); R30.0 Dysuria; E11.9 Type 2 diabetes mellitus without complications; K21.9 Gastro-esophageal reflux disease without esophagitis; Z79.899 Other long term (current) drug therapy
CPT/HCPCS: 81001; 87491; 87591; 96372; 99283; J0696

== ENCOUNTER 2024-04-06 09:37 | Emergency (ER) | payer MEDICAID ==
[~2024-04-06] VITALS: Ht 170.2 cm; Wt 90.1 kg
[~2024-04-06 09:37] MED LIST changes: +DOXY-286 PO
--- NOTE | 2024-04-06 11:07 | ED.PDOC ---
General HPI Comments A 33 YEAR OLD FEMALE PRESENTS TO THE ED WITH COMPLAINT OF FLANK PAIN. PATIENT REPORTS THAT SHE HAS BEEN EXPERIENCING BILATERAL FLANK PAIN SINCE YESTERDAY. PATIENT RELAYS THAT SHE WAS DIAGNOSED WITH A UTI A WEEK AGO AND WAS PRESCRIBED BACTRIM, FINISHING HER COURSE BEFORE HER FLANK PAIN STARTED. PATIENT DENIES FEVER, CHILLS, SHORTNESS OF BREATH, CHEST PAIN, ABDOMINAL PAIN, NAUSEA, VOMITING, DYSURIA, HEMATURIA, OR OTHER COMPLAINTS. NO OTHER SYMPTOMS OR MODIFYING FACTORS AT THIS TIME. Chief Complaint: Back Pain Time Seen by MD: 11:04 Primary Care Provider: TONIO Reviewed notes: Nurses Notes, Medications, Allergies Allergies: Coded Allergies: No Known Drug Allergy (Verified Allergy, Unknown, 01/26/24) Home Meds Active Scripts Methocarbamol (Methocarbamol) 750 Mg Tab, 750 MG PO BID, #30 TAB Prov:ZACH HAYNES 04/06/24 Doxycycline Hyclate (DOXYCYCLINE HYCLATE) 100 Mg Tab, 100 MG PO BID for 7 Days, #14 TAB Prov:LYDIA STOKES MD 03/19/24 Polyethylene Glycol 3350 (Miralax Mix-in Mcewen) 17 Gm Pow, 17 GM PO DAILY for 14 Days, #14 POW Prov:LYDIA STOKES MD 03/02/24 Ibuprofen Micronized (MOTRIN TABLET) 600 Mg Tb, 600 MG PO TID PRN for 5 Days, #15 TAB *Black box warning-NSAIDS can increase risk of CA & hypertension, GI irritation, ulceration, bleed, perferation. Do not use post cardiac surgery. Use short duration/lowest effective dose. Prov:EDUARDO TAYLOR MD 01/29/24 Pantoprazole Sodium Sesquihydr (Protonix) 40 Mg Tab, 40 MG PO DAILY, #30 TAB Prov:JABIER VILLEGAS MD 01/26/24 Nitrofurantoin Monohydrate Mac (Macrobid) 100 Mg Cap, 100 MG PO BID for 5 Days, #10 CAP Prov:JABIER VILLEGAS MD 01/26/24 Promethazine-Dm (Promethazine Dm 6.25-15 mg/5Ml) 1 Jany Jany, 5 ML PO TID, #180 ML Prov:ZACH HAYNES 01/22/24 Fluconazole (Diflucan) 150 Mg Tab, 1 TAB PO DAILY for 2 Days, #2 TAB 1 Refill Prov:DAHIANA CARRILLO BEATER LEAD 12/21/23 Metronidazole (Flagyl) 500 Mg Tab, 1 TAB PO BID for 7 Days, #14 TAB Prov:DAHIANA CARRILLO BEATER LEAD 12/21/23 Metronidazole (Flagyl) 500 Mg Tab, 1 TAB PO BID for 7 Days, #14 TAB 0 Refills Prov:JESUSITA DEY PULPWOOD DEALER 08/17/23 Metronidazole (Flagyl) 375 Mg Cap, 375 MG PO BID for 7 Days, #14 CAP Prov:DAHIANA CARRILLO BEATER LEAD 06/07/23 Fluconazole (Diflucan) 150 Mg Tab, 1 TAB PO ONCE, #1 TAB 1 Refill Prov:DAHIANA CARRILLO BEATER LEAD 06/07/23 Metronidazole (Metronidazole) 500 Mg Tab, 500 MG PO BID for 7 Days, #14 TAB Prov:IKER ALBRIGHT PAC 05/18/23 Fluconazole (Diflucan) 150 Mg Tab, 150 MG PO ONCE for 1 Day, #1 TAB 0 Refills Prov:JESUSITA DEY PULPWOOD DEALER 03/28/23 Pantoprazole Sodium Sesquihydr (Protonix) 40 Mg Tab, 40 MG PO DAILY, #30 TAB Prov:ZACH HAYNES 01/23/22 Albuterol Sulfate (VENTOLIN MDI) 90 Mcg Ih, 90 MCG IN QIDP, #1 INH 0 Refills Prov:DELIA MARTIN 09/17/21 Baclofen (Baclofen) 10 Mg Tab, 10 MG PO BID for 10 Days, #20 TAB Prov:ZACH HAYNES 06/19/21 Ibuprofen (Ibuprofen) 800 Mg Tab, 800 MG PO Q8HP PRN for 7 Days, #21 TAB Prov:ZACH HAYNES 06/06/21 Lactulose (Enulose) 10 Gm/15 Ml Jany, 20 GM PO BID for 7 Days, #300 ML 0 Refills Prov:ZACH HAYNES 06/06/21 Reported Medications Vit W/ Ferrous Fumara ( One Daily) Daily Tab, 1 TAB PO DAILY, #90 TAB 3 Refills 04/23/18 Information Source: Patient Mode of Arrival: Ambulatory Severity: Moderate Inability to void: None Timing: Days Duration: Since onset Prehospital treatment: None Onset: Spontaneous Symptoms: None History of: UTI Location: (R) Flank, (L)Flank Modifying factors: None associated signs and symptoms: Flank Pain, Back Pain Past Medical History PAST MEDICAL HISTORY: GERD, UTI'S Surgical History: Denies all surgeries PANEL ASSEMBLER History: Denies all PANEL ASSEMBLER Hx Family History Family History: No family hx of Cancer, No family hx of DM, No family hx of Heart radha Social History Smoker: Non-Smoker Alcohol: Denies ETOH Use Drugs: Denies Drug Use Lives In: Home Constitutional: denies: chills, diaphoresis, fatigue, fever, malaise, sweats, weakness, others EENTM: denies: blurred vision, double vision, ear bleeding, ear discharge, ear drainage, ear pain, ear ringing, eye pain, eye redness, hearing loss, mouth pain, mouth swelling, nasal discharge, nose bleeding, nose congestion, nose pain, photophobia, tearing, throat pain, throat swelling, voice changes, others Respiratory: denies: cough, hemoptysis, orthopnea, SOB at rest, shortness of breath, SOB with excertion, stridor, wheezing, others Cardiovascular: denies: chest pain, dizzy spells, diaphoresis, Dyspnea on exertion, edema, irregular heart beat, left arm pain, lightheadedness, palpitations, PND, syncope, others Gastrointestinal: denies: abdomen distended, abdominal pain, blood streaked bowels, constipated, diarrhea, dysphagia, difficulty swallowing, hematemesis, melena, nausea, poor appetite, poor fluid intake, rectal bleeding, rectal pain, vomiting, others Genitourinary: reports: flank pain (BILAT); denies: abnormal vagina bleeding, burning, dyspareunia, dysuria, frequency, hematuria, incontinence, pain, , vagina discharge, urgency, others Neurological: denies: dizziness, fainting, headache, left sided numbness, left sided weakness, numbness, paresthesia, pre-existing deficit, right sided numbness, right sided weakness, seizure, speech problems, tingling, tremors, weakness, others Musculoskeletal: reports: back pain, muscle pain; denies: gout, joint pain, joint swelling, muscle stiffness, neck pain, others Integumetry: denies: bruises, change in color, change in hair/nails, dryness, laceration, lesions, lumps, rash, wounds, others Allergic/Immunocompromised: denies: Difficulty Healing, Frequent Infections, Hives, Itching, others Hematologic/Lymphatic: denies: anemia, blood clots, easy bleeding, easy bruising, swollen glands, others Endocrine: denies: excessive hunger, excessive sweating, excessive thirst, excessive urination, flushing, intolerance to cold, intolerance to heat, unexplained weight gain, unexplained weight loss, others Psychiatric: denies: anxiety, bipolar disorder, depression, hopeless, panic disorder, schizophrenia, sleepless, suicidal, others All Other Systems: Reviewed and Negative Physical Exam General Appearance: No Apparent Distress, Obese HEENT: Normal ENT Inspection, PERRL/EOMI Neck: Full Range of Motion, Non-Tender, Normal, Normal Inspection Respiratory: Chest Non-Tender, Lungs Clear, No Accessory Muscle Use, No Respiratory Distress, Normal Breath Sounds Cardiovascular: No Edema, No JVD, No Murmur, No Gallop, Normal Peripheral Pulses, Regular Rate/Rhythm Breast Exam: Deferred Gastrointestinal: No Organomegaly, Non Tender, No Pulsatile Mass, Normal Bowel Sounds, Soft Genitalia: Deferred Pelvic: Deferred Rectal: Deferred Extremities: No calf tenderness, Normal capillary refill, Normal inspection, Normal range of motion, Non-tender, No pedal edema Musculoskeletal : Location: Bilateral Extremity Location: Back Apperance: Tenderness (AND MUSCLE SPASM ON LOW BACK, NO BONY TENDERNESS, SWELLING AND DEFORMITY, NO CVA TENDERNESS. ) Neurologic: Alert, relief operator II-XII nml as Tested, No Motor Deficits, Normal Affect, Normal Mood, No Sensory Deficits Cerebellar Function: Normal Reflexes: Normal Skin: Dry, Normal Color, Warm Peripheral Pulses: 2+ carotid (R), 2+ carotid (L), 2+ dorsalis pedis (R), 2+ dorsalis pedis (L) Lymphatic: No Adenopathy Was a procedure done? Was a procedure done?: No Differential Diagnosis Kidney stone (Female): Musculoskeletal pain, Strain Urinary Problem (Female): Urolithiasis, UTI, Other (LOW BACK MUSCLE STRAIN ) X-Ray, Labs, Meds, VS Vital Signs Date Time Temp Pulse Resp B/P (MAP) Pulse Ox O2 Delivery O2 Flow Rate FiO2 04/06/24 11:14 86 17 100 Room Air 04/06/24 11:14 97.8 86 17 118/75 (89) 100 97.8 04/06/24 10:44 97.8 86 17 118/75 (89) 100 Lab Test 04/06/24 11:15 Range/Units Urine Color Colorless Yellow Urine Clarity Clear Clear Urine pH 5.5 5.0-9.0 Urine Specific [place] 1.004 1.001-1.035 Urine Protein Negative Negative Urine Ketones Negative Negative Urine Blood Negative Negative /uL Urine Nitrite Negative Negative Urine Bilirubin Negative Negative Urine Urobilinogen Normal Negative mg/dL Urine Leukocyte Esterase Negative Negative /uL Urine RBC <1 0 - 4 /hpf Urine WBC <1 0 - 5 /hpf Urine Squamous Epithelial Cells Few <5 /hpf Urine Bacteria None seen None Seen /hpf Urine Glucose Normal Normal mg/dL Urine Test Negative Negative Time of 1ST Reevaluation: 12:35 Reevaluation 1ST: Unchanged Patient Education/Counseling: Diagnosis, Treatment, Need For Follow Up Family Education/Counseling: Diagnosis, Treatment, No Family Present Medical Screening: No EMC Exist At This Time Departure 1 Departure Time of Disposition: 12:35 Impression: Primary Impression: Musculoskeletal pain Additional Impression: Muscle spasm of back Disposition: 01 HOME / SELF CARE / HOMELESS Condition: Stable Additional Instructions: FOLLOW-UP WITH PCP IN 1 TO 2 DAYS. TAKE MEDICATIONS PRESCRIBED. RETURN TO ED FOR ANY NEW OR WORSENING SYMPTOMS. e-Prescriptions Methocarbamol (Methocarbamol) 750 Mg Tab 750 MG PO BID, #30 TAB Prov: ZACH HAYNES 04/06/24 Discharged With: Self Critical Care Note Critical Care Time?: No Stability Stability form required: No Heart Score Heart Score: Heart Score Response (Comments) Value History N/A 0 EKG N/A 0 Age N/A 0 Risk Factors N/A 0 Troponin N/A 0 Total 0 I personally scribed for ZACH HAYNES ([email or web address]) on 04/06/24 at 11:07. Electronically submitted by Matthew Dunne ([email or web address]). I personally scribed for ZACH HAYNES ([email or web address]) on 04/06/24 at 12:34. Electronically submitted by Matthew Dunne ([email or web address]). ZACH HAYNES Apr 06, 2024 11:07
[2024-04-06 11:14] VITALS: BP 118/75; PULSE 86; RESP 17; TEMP 97.8; O2SAT 100
[2024-04-06 11:39] LABS: Urine Bacteria None Seen /hpf (None Seen)
[2024-04-06 12:18] LABS: Urine Blood Negative /uL (Negative); Urine Clarity Clear (Clear); Urine Color Colorless (Yellow); Urine Protein, UAD Negative (Negative); Urine Specific Gravity 1.004 (1.001-1.035); Urine Urobilinogen Normal (Negative); Urine WBC <1 /hpf (0 - 5); Urine pH 5.5 (5.0-9.0)
[2024-04-06] MEDS ORDERED: METH-1182 PO (12:33)
== END 2024-04-06 12:43 | disposition home or self-care (01) ==
LOC: ER 09:37
DX: M62.830 Muscle spasm of back (principal); K21.9 Gastro-esophageal reflux disease without esophagitis; Z79.899 Other long term (current) drug therapy; Z87.440 Personal history of urinary (tract) infections; Z32.02 Encounter for pregnancy test, result negative
CPT/HCPCS: 81001; 81025